=== PATIENT | male | born 1935 | race Caucasian/White ===

== ENCOUNTER → 2018-01-13 14:00 | Outpatient (CLI) | payer MEDICARE, BC | END | disposition home or self-care (01) | LOC: D.US 14:00 | DX: M79.604 Pain in right leg (principal) ==

== ENCOUNTER → 2019-10-23 15:59 | Outpatient (CLI) | payer MEDICARE, BC ==
[2019-10-23 16:10] LABS: BASOPHILS 0.6 % (0-2); EOSINOPHILS 2.7 % (0-7); HEMATOCRIT 44.1 % (42.0-54.0); HEMOGLOBIN 14.5 g/dL (13.5-17.5); IMMATURE GRANULOCYTES 0.2 % (0-5); LYMPHOCYTES 21.4 % (15-50); MCHC 32.9 g/dL (31.0-37.0); MCV 100.2 fL (80.0-100.0); MEAN PLATELET VOLUME 11.3 fL (7.4-10.4); MONOCYTES 7.4 % (2-11); NEUTROPHILS 67.7 % (40-80); PLATELET COUNT 198 10x3/uL (130-400); RDW 12.9 % (11.5-14.5); WBC 5.1 10x3/uL (4.8-10.8)
[2019-10-23 16:57] LABS: ALBUMIN 3.6 g/dL (3.4-5.0); ANION GAP 12.4 mmol/L (8-16); BILIRUBIN - TOTAL 0.63 mg/dL (0.2-1.3); CALCIUM 9.2 mg/dL (8.5-10.1); CARBON DIOXIDE 29.5 mmol/L (21.0-32.0); CHOL - HDL RATIO 3.7 ratio (2.3-4.9); CREATININE - SERUM 1.1 mg/dL (0.6-1.3); LDL-HDL RATIO 2.3 ratio (1.5-3.5); POTASSIUM - SERUM 3.9 mmol/L (3.5-5.1); PROTEIN - SERUM 7.1 g/dL (6.4-8.2); THYROID STIMULATING HORMONE 0.93 uIU/mL (0.36-3.74)
== END | disposition home or self-care (01) ==
LOC: D.LABREF 15:59
PROVIDERS: ATTEND Family Medicine
DX: C61 Malignant neoplasm of prostate (principal)

== ENCOUNTER 2020-01-13 13:27 | Inpatient (IN) | payer MEDICARE, BC ==
[2020-01-13 14:02] LABS: BASOPHILS 0.2 % (0-2); EOSINOPHILS 1.8 % (0-7); HEMATOCRIT 41.6 % (42.0-54.0); HEMOGLOBIN 13.5 g/dL (13.5-17.5); LYMPHOCYTES 16.8 % (15-50); MCH 33.1 pg (26.0-34.0); MCHC 32.5 g/dL (31.0-37.0); MEAN PLATELET VOLUME 10.5 fL (7.4-10.4); MONOCYTES 5.9 % (2-11); NEUTROPHILS 75.3 % (40-80); PLATELET COUNT 163 10x3/uL (130-400); RBC 4.08 10x6/uL (4.20-6.10); RDW 13.2 % (11.5-14.5); WBC 4.6 10x3/uL (4.8-10.8)
[2020-01-13 14:10] LABS: CALC OSMOLALITY 286 mosm/kg (275-300); CALCIUM 9.1 mg/dL (8.5-10.1); CARBON DIOXIDE 31.4 mmol/L (21.0-32.0); CHLORIDE - SERUM 106 mmol/L (98-107); CREATININE - SERUM 1.1 mg/dL (0.6-1.3); GLUCOSE 102 mg/dL (74-106); POTASSIUM - SERUM 3.8 mmol/L (3.5-5.1); SODIUM 143 mmol/L (136-145); UREA NITROGEN 17 mg/dL (7-18); eGFR NON AFRICAN AMERICAN 67 mL/min (90-120)
[2020-01-13 14:24] LABS: ALBUMIN 3.6 g/dL (3.4-5.0); ALKALINE PHOSPHATASE 67 U/L (30-120); ALT (SGPT) 16 U/L (10-68); BILIRUBIN - TOTAL 0.88 mg/dL (0.2-1.3); PROTEIN - SERUM 6.5 g/dL (6.4-8.2); THYROID STIMULATING HORMONE 0.76 uIU/mL (0.36-3.74); TROPONIN-I < 0.017 ng/mL (0.000-0.060)
[2020-01-13 14:52] LABS: UDS - AMPHET NEGATIVE QUAL (NEGATIVE); UDS - BARB NEGATIVE QUAL (NEGATIVE); UDS - BENZO NEGATIVE QUAL (NEGATIVE); UDS - COCAINE NEGATIVE QUAL (NEGATIVE); UDS - OPIATE NEGATIVE QUAL (NEGATIVE); UDS - PCP NEGATIVE QUAL (NEGATIVE); UDS - THC NEGATIVE QUAL (NEGATIVE)
[2020-01-13 15:11] LABS: BILIRUBIN NEGATIVE (NEGATIVE); GLUCOSE NEGATIVE (NEGATIVE); KETONE NEGATIVE (NEGATIVE); NITRITE NEGATIVE (NEGATIVE); SPECIFIC GRAVITY 1.015 (1.005-1.020); UROBILINOGEN NORMAL (NORMAL)
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
--- NOTE | 2020-01-13 15:31 | NUR ---
PT SPOUSE PHONE NUMBER [phone]
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
[2020-01-13] MEDS ORDERED: VITAMIN D1000 UNI1 (17:07)
[2020-01-13] MEDS ORDERED: LISINOPRIL-HCT1 EAC8 (17:08)
[2020-01-13 17:55] VITALS: BP 158/85; BMI 31.0
--- NOTE | 2020-01-13 18:20 | NUR ---
The patient is admitted to pen[facility]iary from the emergency dept. He is accompanied by this nurse in a w/c. He is pleasnt, but very confused. He knows his name, but not the place or time. He is able to ambulate. He is here in penitentiary with increased confusion, he is having some psychotic features and he is aggressive at times per his spouse. Recieved verbal consent from his spouse Hellen Terrell and she also stated that the patient has a living will that says he doesn't want any heroic measures, but the spouse said "Well, if you can save him and he niurka be ok then he should be a full code." At this time Marcelo Osborne RN made him a full code until she receives the POA papers with medical consents.
--- NOTE | 2020-01-13 18:26 | NUR ---
The patient is very confused as he is asking about his Mother. The patient said "Well, I just saw her, she's down in all that mess." The patient needs much direction as he gets lost easily with going to the bathroom.
[2020-01-13 18:42] LABS: CHOL - HDL RATIO 2.9 ratio (2.3-4.9); LDL-HDL RATIO 1.7 ratio (1.5-3.5)
[2020-01-13 20:00] VITALS: BP 112/54
--- NOTE | 2020-01-13 20:25 | NUR ---
PATIENT IS VERY CONFUSED, HYPERVERBAL, ONLY ORIENTED TO SELF, CAN BE A LITTLE DISRUPTIVE TO THE MILEU. WILL FOLLOW POC AND MONITOR, (NEW PATIENT)
--- NOTE | 2020-01-13 20:28 | NUR ---
PATIENT IS NEW, VERY CONFUSED, ORIENTED TO SELF ONLY, HARD TO REDIRECT, HYPERVERBAL, DISRUPTS THE MILEU. WILL FOLLOW POC
--- NOTE | 2020-01-14 07:57 | NUR ---
The patient is awake and alert, he is confused, he knows his name. He has poor insight into his situation. He ambulates independently. Provide prescribed meds. He needs much redirection. The patient is pleasant and he is hyperverbal. He has not shown any aggression. Provide prescribed meds. Continue POC.
[2020-01-14 09:03] VITALS: BP 125/77
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
--- NOTE | 2020-01-14 11:24 | NUR ---
The patient is hyperverbal and he is getting a little anxious d/t other patients getting loud and he is conversing with that patient and the other patient is discussing leaving. So this patient started getting upset and asked to leave and he became more and more verbal about it. Provided ativan 0.5 mg po, will monitor.
--- NOTE | 2020-01-14 17:51 | NUR ---
SPOKE WITH PT THIS SHIFT ABOUT POA PAPERWORK AND GETTING PT CODEWORD. NURSE REQUESTED A COPY WELL. SHE COULD NOT FIGURE OUT HOW SHE WAS GOING TO GET A COPY HERE. NURSE EXPLAINED THAT ON THURSDAY WE COULD FIGURE SOMETHING OUT THEN. SHE WANTED TO KNOW WHY SHE NEEDED A PASSCODE IF SHE HAD POA. NURSE EXPLAINED THAT SHE STILL HAS TO HAVE A CODE TO GET INFORMATION CAUSE OF HIPPA LAW. SHE DID NOT UNDERSTAND WHY SHE NEEDED THE CODE IF SHE HAD POA. NURSE EXPLAINED THAT WAS THE LAW. SHE UNDERSTOOD.
--- NOTE | 2020-01-14 18:18 | NUR ---
LUIS EDUARDO PAPERWORK FAXED THIS SHIFT.
[2020-01-14 20:00] VITALS: BP 111/72
--- NOTE | 2020-01-14 23:38 | NUR ---
B)RECEIVED PATIENT WANDERING AROUND IN THE DAYROOM. INTRUSSIVE AND WILL WALK UP AND START TALKING WHEN SOMEONE IS ALREADY INTERACTING WITH ANOTHER INDIVIDUAL. LAUGHS INAPPROPRIATELY. DELUSIONAL AND BELIEVED A STAFF MEMBER WAS HIS REALTING "I REALLY BELIEVED THAT WAS MY . SHE IS A RINGER FOR MY ." CONFUSED AND DISORIENTED. I)ADMINISTER MEDS AND MONITOR COMPLIANCE. REORIENT NEEDED. R)MED COMPLIANT. POOR REORIENTATION DUE TO IMPAIRED ABILITY TO COMPREHEND, PROCESS AND RETAIN INFORMATION. P)CONTINUE POC AND PROVIDE SAFE ENVIRONMENT.
[2020-01-15 09:33] VITALS: BP 141/72
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
--- NOTE | 2020-01-15 12:00 | NUR ---
RECEIVED IN HALLWAY OUTSIDE OF NURSES STATION. CALM AND COOPERATIVE WITH CARE AND ASSESSMENT. NO HALLUCINATIONS NOTED. NO AGGRESSION. REDIRECT AND REORIENT NEEDED. EATING LUNCH AT THIS TIME. CONTINUE PLAN OF CARE.
[2020-01-15 20:00] VITALS: BP 148/79
--- NOTE | 2020-01-15 20:04 | NUR ---
RECEIVED IN DAYROOM. SITTING CALMLY DURING GROUP. CALM AND COOPERATIVE WITH CARE AND ASSESSMENT. NO SIGNS SEXUALLY INAPPROPRIATE BEHAVIOR. REDIRECT AND REORIENT NEEDED. CONTINUE TO SIT CALMLY IN DAYROOM. CONTINUE PLAN OF CARE.
--- NOTE | 2020-01-15 20:07 | NUR ---
RECEIVED IN DAYROOM. SITTING CALMLY DURING EVENING GROUP. CALM AND COOPERATIVE WITH CARE AND ASSESSMENT. CONFUSED. NO SIGNS OF HALLUCINATIONS. REDIRECT AND REORIENT NEEDED. CONTINUES TO SIT CALMLY IN DAYROOM. CONTINUE PLAN OF CARE.
--- NOTE | 2020-01-15 23:10 | NUR ---
VERY CONFUSED. INCREASING ANXIETY. AGITATION YAHAIRA REDIRECTION. PRN ATIVAN 0.5 MG IM GIVEN FOR ANXIETY AND PRN HALDOL 2 MG IM GIVEN FOR PSYCHOTIC BEHAVIOR.
--- NOTE | 2020-01-16 00:30 | NUR ---
RESTING IN BED WITH EYES CLOSED.
[2020-01-16 09:39] VITALS: BP 85/48
--- NOTE | 2020-01-16 12:00 | NUR ---
RECEIVED IN HALLWAY OUTSIDE OF NURSES STAION. CALM AND COOPERATIVE WITH CARE AND ASSESSMENT. NO AGITATION OR AGGRESSION. MORE DROWSY TODAY FROM PRN LAST NIGHT. REDIRECT AND REORIENT NEEDED. EATING LUNCH AT THIS TIME. CONTINUE PLAN OF CARE.
--- NOTE | 2020-01-16 13:21 | PN ---
PATIENT:BRAYAN REYNOLDS MEDICAL RECORD: [id number] LOCATION:[facility]ET[facility] Cho ADMISSION DATE: 01/13/20 PROGRESS NOTE DATE OF SERVICE: 01/15/2020 SUBJECTIVE: The patient's case was discussed with staff. He has no new complaint. OBJECTIVE: The patient is very impaired cognitively and only partially oriented. He has almost no insight about his situation. He denies that he would seek to harm himself or others. ASSESSMENT: Dementia. PLAN: The patient's vital signs have been good, although he is not taking anything for blood pressure at this time. I am going to go ahead and start him on Namenda for its memory enhancing properties. He will be monitored for clinical changes associated with its use. In my opinion, it is clear that this patient has an advanced dementing illness. I am not able to explain the family's history that this all started in August after he hit his head. The patient appears to have a progressive dementia and there are no obvious toxic or metabolic issues going on and the CAT scan that he had in the Emergency Department showed no acute process, but did indeed show evidence of atrophy consistent with a long-term or longstanding dementing process. TRANSINT:[id number] Voice Confirmation ID: [id number] DOCUMENT ID: [id number] JOVANNA RIVAS MD at 1321 CC: [id number] DICTATION DATE: 01/15/20 1152 SINGER AND UNLOADER: 01/15/20 1646 ADM IN [facility] [address] [place] [address]
[2020-01-16 13:52] VITALS: Wt 102.4 kg
--- NOTE | 2020-01-16 19:32 | NUR ---
RECEIVED IN DAYROOM. COMBATIVE WITH CARE AND REDIRECTION. HIGH ANXIETY. PRN ATIVAN 0.5 MG IM GIVEN FOR ANXIETY AND PRN HALDOL 2 MG IM GIVEN FOR PSYCHOTIC BEHAVIOR. CONTINUE TO ATTEMPT REDIRECTION. SITTING IN RECLINER OUTSIDE OF NURSES STAION AT THIS TIME. CONTINUE PLAN OF CARE.
[2020-01-16 19:49] VITALS: BP 137/70
--- NOTE | 2020-01-17 01:08 | NUR ---
RESTLESS IN BED.
[2020-01-17 08:09] VITALS: BP 139/78
--- NOTE | 2020-01-17 12:35 | NUR ---
RECEIVED IN HALLWAY OUTSIDE OF NURSES STATION. RESTLESS. ANXIOUS. CONTINUOUSLY ATTEMPTING TO GET UP WITHOUT ASSISTANCE. BECOMES AGITATED AND AGGRESSIVE WITH REDIRECTION AND CARE. UNCOOPERATIVE. COMBATIVE WITH STAFF. PRN ATIVAN 0.5 MG IM GIVEN FOR INCREASING ANXIETY AND PRN HALDOL 2 MG FOR PSYCHOTIC UNSAFE BEHAVIOR.
--- NOTE | 2020-01-17 13:18 | PN ---
PATIENT:BRAYAN REYNOLDS MEDICAL RECORD: [id number] LOCATION:[facility]A Daniel113 ADMISSION DATE: 01/13/20 PROGRESS NOTE DATE OF SERVICE: 01/16/2020 SUBJECTIVE: The patient's case was discussed with staff. He has no new complaint. OBJECTIVE: The patient slept and ate well yesterday. He has been very confused. He did require some p.r.n. medication for agitation yesterday. ASSESSMENT: Dementia. PLAN: The patient will be given Klonopin to assist with the anxiety. The anxiety and being unable to understand and process information in his environment is resulting in some significant agitation. His long-term prognosis is guarded. TRANSINT:[id number] Voice Confirmation ID: [id number] DOCUMENT ID: [id number] JOVANNA RIVAS MD at 1318 CC: [id number] DICTATION DATE: 01/16/20 1530 CEPHALOMETRIC TRACER: 01/16/20 2252 ADM IN [facility] [address] [place] [address]
[2020-01-17 20:11] VITALS: BP 124/80
--- NOTE | 2020-01-17 20:23 | NUR ---
RECEIVED IN DAYROOM. SITTING IN A RECLINER WITH PEERS ATR HER SIDE. CALM AND COOPERATIVE WITH CARE AND ASSESSMENT. NO SIGNS OF AGGRESSION. REDIRECTY AND REORIENT NEEDED. CONTINUES TO SIT QUIETLY IN DAYROOM. CONTINUE PLAN OF CARE.
[2020-01-18 08:36] VITALS: BP 136/70
--- NOTE | 2020-01-18 09:53 | NUR ---
SW SPOKE TO [facility]SEA AT [facility]. PT HAS A CURRENT OPEN CASE. ANTIONE WILL SEND UPDATES TO HOSEA PER REQUEST.
[2020-01-18 12:33] LABS: ALBUMIN 3.5 g/dL (3.4-5.0); ALKALINE PHOSPHATASE 75 U/L (30-120); ALT (SGPT) 17 U/L (10-68); BILIRUBIN - TOTAL 1.57 mg/dL (0.2-1.3); CALC OSMOLALITY 287 mosm/kg (275-300); CALCIUM 8.9 mg/dL (8.5-10.1); CARBON DIOXIDE 26.4 mmol/L (21.0-32.0); CHLORIDE - SERUM 109 mmol/L (98-107); GLUCOSE 106 mg/dL (74-106); POTASSIUM - SERUM 3.7 mmol/L (3.5-5.1); PROTEIN - SERUM 6.1 g/dL (6.4-8.2); SODIUM 144 mmol/L (136-145); UREA NITROGEN 16 mg/dL (7-18); eGFR NON AFRICAN AMERICAN 75 mL/min (90-120)
[2020-01-18 13:01] LABS: BASOPHILS 0.3 % (0-2); EOSINOPHILS 2.8 % (0-7); HEMATOCRIT 43.5 % (42.0-54.0); HEMOGLOBIN 14.5 g/dL (13.5-17.5); IMMATURE GRANULOCYTES 0.2 % (0-5); MCH 33.5 pg (26.0-34.0); MCHC 33.3 g/dL (31.0-37.0); MCV 100.5 fL (80.0-100.0); MEAN PLATELET VOLUME 10.7 fL (7.4-10.4); MONOCYTES 7.2 % (2-11); NEUTROPHILS 77.5 % (40-80); PLATELET COUNT 184 10x3/uL (130-400); RBC 4.33 10x6/uL (4.20-6.10); RDW 13.1 % (11.5-14.5); WBC 6.4 10x3/uL (4.8-10.8)
--- NOTE | 2020-01-18 13:35 | PN ---
PATIENT:BRAYAN REYNOLDS MEDICAL RECORD: [id number] LOCATION:MaríaKHANHSharad Daniel113 ADMISSION DATE: 01/13/20 PROGRESS NOTE DATE OF SERVICE: 01/17/2020 SUBJECTIVE: The patient's case was discussed with staff. He has no new complaint. OBJECTIVE: The patient was quite agitated last night. He was disorganized with very poor insight. ASSESSMENT: Dementia. PLAN: Current medicines have been reviewed and will be maintained. Long-term prognosis is guarded. TRANSINT:[id number] Voice Confirmation ID: [id number] DOCUMENT ID: [id number] JOVANNA RIVAS MD at 1335 CC: [id number] DICTATION DATE: 01/17/20 1557 MANAGER CATEGORY: 01/18/20 0100 ADM IN [id number] [place] [address]
--- NOTE | 2020-01-18 15:13 | NUR ---
RECEIVED SITTING UP IN RECLINER AT NURSES STATION THIS AM.VERY CONFUSED.OBSERVED FREQUENTLY SPITTING UP THICK,DIRTY WHITE MUCOUS.MEDS WERE CRUSHED AND GIVEN IN APPLESAUCE.ATTEMPTED TO THROW WATER.XRAY OF CHEST WAS DONE TODAY.NO HALLUCINATIONS OBSERVED.
--- NOTE | 2020-01-18 19:21 | NUR ---
SPOKE WITH PT DAUGHTER THIS SHIFT. PASSCODE GIVEN. SHE WANTED TO KNOW HOW HIS BEHAVIORS WERE. NURSE EXPLAINED THAT HE WAS SLEEPY THIS SHIFT DUE TO MEDICATION PREVIOSLY GIVEN. SHE STATED YES HE GOT 2 YESTERDAY HE IS A BIG MAN. SHE ASKED IF I THOUGHT THE MEDS WERE STARTING TO WORK AND NURSE STATED NO CAUSE HE WAS SEDATED NOT ON CURRENT MEDICATIONS. SHE DID EXPRESS SOME UNDERSTANDING. PT WAS DROWSY DUE TO IM MEDICATIONS.
[2020-01-18 20:09] VITALS: BP 129/79
--- NOTE | 2020-01-18 21:37 | NUR ---
PATIENT IS VERY CONFUSED, ANSWERS TO NAME HOWEVER IM NOT SURE THAT HE ACTUALLY KNOWS HIS NAME, HE DOES NOT KNOW, WHERE HE IS, TIME OR SITUATION, COMPLIANT WITH MEDS. LABIILE, EASILY AGITATED. WILL FOLLOW POC
--- NOTE | 2020-01-19 14:01 | PN ---
PATIENT:BRAYAN REYNOLDS MEDICAL RECORD: [id number] LOCATION:SVET[facility] Daniel113 ADMISSION DATE: 01/13/20 PROGRESS NOTE DATE OF SERVICE: 01/18/2020 SUBJECTIVE: The patient's case was discussed with staff. He has no new complaint. OBJECTIVE: The patient is in good behavioral control, but easily arousable and becomes agitated easily. ASSESSMENT: Dementia. PLAN: The patient will be treated with a low dose of Geodon. His long-term prognosis is guarded. TRANSINT:[id number] Voice Confirmation ID: [id number] DOCUMENT ID: [id number] JOVANNA RIVAS MD at 1401 CC: [id number] DICTATION DATE: 01/18/20 1539 SECURITY INCIDENT RESPONSE SPECIALIST: 01/19/[address] [facility] [address] [place] [address]
--- NOTE | 2020-01-19 14:25 | NUR ---
Nutrition Follow-up: Poor PO intake. Noted Megace added. Diet: Regular PO intake: 0% breakfast this AM; only 50% snack yesterday; 0% x 3 on 01/16 Wt: 239.6# (01/15) Last BM: 01/17 Labs reviewed Meds noted: Megace -Encourage PO intake and honor food preferences. -+Ensure with meals. -Monitor wt. -RD following.
--- NOTE | 2020-01-19 15:20 | NUR ---
PT SITTING IN CHAIR AT THIS TIME. PT IS CONFUSED AND ORIENTED TO SELF ONLY. PT COMPLIANT WITH MEDS, VITALS AND ASSESSMENTS. CALLED AND COULD NOT UNDERSTAND WHY HE DID NOT UNDERSTAND HER OR ANSWER SIMPLE QUESTIONS. NURSE EXPLAINED HE HAD BEEN CONFUSED SINCE ADMISSION. PT HAS NOT BEEN COMBATIVE WITH CARE THIS SHIFT. CHAIR AND BED ALARM IN PLACE AND ACTIVE. WILL CONT PLAN OF CARE.
[2020-01-19 20:00] VITALS: BP 184/75
--- NOTE | 2020-01-20 00:12 | NUR ---
B)RECEIVED PATIENT LYING IN THE BED. CONFUSED AND DISORIENTED. NO INSIGHT INTO THE REASON FOR HOSPITALIZATION. PATIENT TRIES TO GET UP UNASSISTED WHEN NEEDING TO GO TO THE BATHROOM. I)ADMINISTER MEDS AND MONITOR COMPLIANCE. ENCOURAGE PATIENT TO ASK FOR HELP WHEN NEEDING TO GET UP. R)MED COMPLIANT. FORGETFUL AND STILL ATTEMPTS TO GET UP UNASSISTED. HAS GONE TO BATHROON X2 WITH ASSIST. P)CONTINUE POC AND PROVIDE SAFE ENVIRONMENT.
--- NOTE | 2020-01-20 04:22 | NUR ---
AT 04:13 GAVE ATIVAN 0.5 MG IM AND HALDOL 2 MG IM FOR ANXIETY AND AGGRESSION WITH STAFF.
--- NOTE | 2020-01-20 10:31 | NUR ---
The patient is sleeping at this time. He fought and acted out this am when staff tried to get him up out of the bed. The patient did not awaken for breakfast or medication this am. Provide prescribed meds. The patient is too sleepy at this time for meds. He has poor insight into his situation. Continue POC.
[2020-01-20 10:45] VITALS: BP 143/68
[2020-01-20 20:00] VITALS: BP 112/70
--- NOTE | 2020-01-20 23:39 | NUR ---
B.) PT IS VERY SLEEPY TONIGHT. HE IS RECEIVED IN HIS ROOM. HE IS COOPERATIVE WITH STAFF WHEN PROMPTED. HE IS RESTING CALMLY WITH EYES CLOSED. NO SIGNS OF DISTRESS NOTED. I.) PROVIDED PM MEDICATIONS PRESCRIBED. REDIRECT NEEDED. R.) COMPLIANT WITH ALL MEDICATIONS. P.) WILL CONTINUE TO MONITOR.
--- NOTE | 2020-01-21 10:37 | NUR ---
The patient is more awake this am, he is very confused, he tried to stand and walk on his own. He is unsteady. He did fight a little bit with staff, he is difficult to direct and he is not following simple commands. Assisted him to eat breakfast this am. He did need to be fed, but he is eating and drinking today and not sleepy. He tried to talk a little bit and most questions he answers appropriately. Provide prescribed meds. Monitor mood and behavior. Continue POC.
--- NOTE | 2020-01-21 23:09 | NUR ---
B.) PT IS ALERT AND ORIENTED TO SELF ONLY. HE HAS POOR INSIGHT INTO HIS SITUATION. HIS SPEECH IS GARBLED AND LOW. HE IS SPITTING AT STAFF. HE IS RECEIVED IN THE DAYROOM IN A GERICHAIR. HE IS WITHDRAWN WITH A FLAT AFFECT. I.) PROVIDED PM MEDICATIONS. REDIRECT OFTEN. R.) COMPLIANT WITH ALL MEDICATIONS. DIFFICULT TO REDIRECT. P.) WILL CONTINUE TO MONITOR.
[2020-01-22 08:34] VITALS: BP 131/68
--- NOTE | 2020-01-22 12:37 | NUR ---
The patient is awake, but he is confused. He is not as talkative today as he was yesterday. He did not want to eat much for lunch, he drank his ensure. He did not become aggressive with staff this am when they got him up. He has no insight into his situation. Provide prescribed meds. The patient is compliant with meds. Continue POC.
--- NOTE | 2020-01-22 19:59 | NUR ---
RECEIVED IN DAYROOM. SITTING IN A CHAIR WITH PEERS AT HIS SIDE. CALM AND COOPERATIVE WITH CARE AND ASSESSMENT. VERY CONFUSED. NO SIGNS OF AGGRESSION OR HALLUCIANTIONS. REDIRECT AND REORIENT NEEDED. CONTINUES TO SIT CALMLY IN DAYROOM. CONTINUE PLAN OF CARE.
[2020-01-22 20:04] VITALS: BP 140/78
[2020-01-23 07:40] VITALS: BP 130/67
--- NOTE | 2020-01-23 12:04 | PN ---
PATIENT:BRAYAN REYNOLDS MEDICAL RECORD: [id number] LOCATION:SVET[facility] Daniel113 ADMISSION DATE: 01/13/20 PROGRESS NOTE DATE OF SERVICE: 01/19/2020 SUBJECTIVE: The patient's case was discussed with staff. He has no new complaint. OBJECTIVE: The patient has been somewhat combative with care. He is very poorly organized. He has just been started on the Geodon and I think I would like to give that another day or two of trial before additional adjustments. ASSESSMENT: Dementia. PLAN: Current medicines have been reviewed and will be maintained. TRANSINT:[id number] Voice Confirmation ID: [id number] DOCUMENT ID: [id number] JOVANNA RIVAS MD at 1204 CC: [id number] DICTATION DATE: 01/19/20 1620 SENIOR MECHANICAL ESTIMATOR: 01/19/20 1806 ADM IN [address] [place] [address]
--- NOTE | 2020-01-23 14:22 | NUR ---
RECEIVED IN HALLWAY OUTSIDE OF NURSES STATION. CALM AND COOPERATIVE WITH CARE AND ASSESSMENT. NO AGGRESSION. REDIRECT AND REORIENT NEEDED. RESTING IN RECLINER WITH EYES CLOSED AT THIS TIME. CONTINUE PLAN OF CARE.
[2020-01-23 21:17] VITALS: BP 149/71
--- NOTE | 2020-01-23 21:48 | NUR ---
RECEIVED IN HALLWAY SITTING IN A CHAIR WITH PEERS AT HIS SIDE. VERY CONFUSED. CALM AND COOPERATIVE WITH CARE AND ASSESSMENT. NO SIGNS OF AGGRESSION. REDIRECT AND REORIENT NEEDED, RESTING IN BED WITH EYES CLOSED AT THIS TIME. CONTINUE PLAN OF CARE.
[2020-01-24 08:04] VITALS: BP 120/57
[2020-01-24 13:08] LABS: BASOPHILS 0.1 % (0-2); EOSINOPHILS 0.5 % (0-7); HEMATOCRIT 44.3 % (42.0-54.0); HEMOGLOBIN 14.6 g/dL (13.5-17.5); IMMATURE GRANULOCYTES 0.2 % (0-5); LYMPHOCYTES 5.7 % (15-50); MCH 33.3 pg (26.0-34.0); MCV 100.9 fL (80.0-100.0); MEAN PLATELET VOLUME 10.6 fL (7.4-10.4); MONOCYTES 7.2 % (2-11); NEUTROPHILS 86.3 % (40-80); PLATELET COUNT 149 10x3/uL (130-400); RBC 4.39 10x6/uL (4.20-6.10); RDW 13.2 % (11.5-14.5); WBC 9.1 10x3/uL (4.8-10.8)
[2020-01-24 13:24] LABS: ALBUMIN 3.3 g/dL (3.4-5.0); ANION GAP 9.7 mmol/L (8-16); BILIRUBIN - TOTAL 1.42 mg/dL (0.2-1.3); CALCIUM 9.1 mg/dL (8.5-10.1); CARBON DIOXIDE 29.9 mmol/L (21.0-32.0); CREATININE - SERUM 1.1 mg/dL (0.6-1.3); POTASSIUM - SERUM 3.6 mmol/L (3.5-5.1); PROTEIN - SERUM 6.7 g/dL (6.4-8.2)
--- NOTE | 2020-01-24 15:00 | PN ---
PATIENT:BRAYAN REYNOLDS MEDICAL RECORD: [id number] LOCATION:[facility]arad [facility]ela[facility]ishore113 ADMISSION DATE: 01/13/20 PROGRESS NOTE DATE OF SERVICE: 01/23/2020 SUBJECTIVE: The patient's case was discussed with staff. He has no new complaint. OBJECTIVE: The patient is not eating well. He ate almost nothing yesterday. He has poor insight about his situation. He has not been excessively agitated or disruptive. He does require a lot of redirection. ASSESSMENT: Dementia. PLAN: Current medicines have been reviewed and will be maintained. Long-term prognosis is guarded. TRANSINT:[id number] Voice Confirmation ID: [id number] DOCUMENT ID: [id number] JOVANNA RIVAS MD at 1500 CC: [id number] DICTATION DATE: 01/23/20 1332 SLAB WORKER: 01/23/20 1355 ADM IN [id number] [place] [address]
--- NOTE | 2020-01-24 17:00 | NUR ---
RECEIVED IN HALLWAY OUTSIDE OF NURSES STATION. CALM AND COOPERATIVE WITH CARE AND ASSESSMENT. NO AGGRESSION TODAY. AM MEDS HELD DUE TO PATIENT BEING LETHARGIC THIS MORNING. REDIRECT AND REORIENT NEEDED. EATING AT THIS TIME. CONTINUE PLAN OF CARE.
[2020-01-24 20:09] VITALS: BP 137/72
--- NOTE | 2020-01-24 21:11 | NUR ---
RECEIVED IN DAYROOM. SITTING IN A CHAIR WITH PEERS AT HIS SIDE. CALM AND CCOPERATIVE WITH CARE AND ASSESSMENT. NO SIGNS OF AGGRESSION. REDIRECT AND REORIENT NEEDED. IN BEDROOM EYES CLOSED AT THIS TIME. CONTINUE PLAN OF CARE.
--- NOTE | 2020-01-25 09:57 | NUR ---
SW SPOKE TO . SW DID A REFERRAL TO [facility] WITH 'S PERMISSION. PT WAS ALSO REFERRED TO [facility]. [facility] IS BACK. SW IS WAITING ON HOSPICE EVALUATION TO DETERMINE IF PT WILL MEET INPATIENT CRITERIA. SW REPORTED ALL OF THESE THINGS TO . SHE VERBALIZED UNDERSTANDING OF DISCUSSION.
[2020-01-25 10:28] VITALS: BP 146/76
--- NOTE | 2020-01-25 11:09 | NUR ---
The patient is awake to eat breakfast and take medication, but he is sleepy currently. Izzy Davies RN did a COVID-19 test on him and sent the results to the lab. He needs assist to eat and drink. He has not mentioned seeing little people. He has not been aggressive this am. He is currently NPO, meds held this am. George [facility] is assisting to get the patient placement and Hospice. Continue POC.
--- NOTE | 2020-01-25 13:26 | NUR ---
Nutrition Consult/Follow-up: NPO per CHAIN PEGGER recs. Poor PO intake prior to NPO status. Wt loss noted. Noted plans to d/c on hospice. Diet: NPO PO intake: 0% x 9 meals (01/21-01/23) Wt: 225# (01/21); 239.6# (01/15); 241# (01/12) Labs noted (01/23): Na 149, Alb 3.3 -RD following and available to assist as needed.
--- NOTE | 2020-01-25 14:51 | PN ---
PATIENT:BRAYAN REYNOLDS MEDICAL RECORD: [id number] LOCATION:[facility]A [facility] ADMISSION DATE: 01/13/20 PROGRESS NOTE DATE OF SERVICE: 01/24/2020 SUBJECTIVE: The patient's case was discussed with staff. He has no new complaint. OBJECTIVE: The patient is disorganized and difficult to redirect. He continues to have episodic agitation. He is showing evidence of dehydration secondary to his poor oral intake. ASSESSMENT: Dementia. PLAN: Current medicines have been reviewed. He will be monitored for clinical changes. His long-term prognosis is guarded. TRANSINT:[id number] Voice Confirmation ID: [id number] DOCUMENT ID: [id number] JOVANNA RIVAS MD at 1451 CC: [id number] DICTATION DATE: 01/24/20 1532 DIVIDEND CLERK: 01/24/20 2253 ADM IN [id number] [place] [address]
--- NOTE | 2020-01-25 16:15 | NUR ---
PATIENT DISCHARGED TO INPATIENT [facility]. PATIENT TRANSPORTED TO [facility] INPATIENT VIA EMS. REPORT CALLED TO GERALDINE FORTUNE. PAPERWORK FAXED TO INPATIENT [facility] AND HARD COPY SENT WITH EMS. PERSONAL BELONGINGS SENT WITH PATIENT.
--- NOTE | 2020-01-26 14:39 | PN ---
PATIENT:BRAYAN ERYNOLDS MEDICAL RECORD: [id number] [facility] ADMISSION DATE: 01/13/20 PROGRESS NOTE DATE OF SERVICE: 01/25/2020 SUBJECTIVE: The patient's case was discussed with staff. He has no new complaint. OBJECTIVE: The patient is calm and cooperative, but only oriented to person. He is not eating, has lost a great deal of weight and now is p.o. because of swallowing difficulties. From a behavioral standpoint, which is my concern, he is not a danger to others. With regard to his underlying medical condition, there are others looking into that and caring for him and it appears that his prognosis is poor and he has been referred to inpatient hospice. There are no behavioral reasons why he could not be safely managed on a hospice unit. I have been asked to discharge him to a facility today. TRANSINT:[id number] Voice Confirmation ID: [id number] DOCUMENT ID: [id number] JOVANNA RIVAS MD at 1439 CC: [id number] DICTATION DATE: 01/25/201657 VICE PRESIDENT PHARMACY: 01/26/20 0217 DIS IN 01/25/20 [facility] [address] [id number]
== END 2020-01-25 16:15 | disposition home health service (06) | DRG 57 ==
LOC: D.ER 13:27 → D.PSYCH 16:32 → D.ER 16:54 → D.PSYCH 01-25 16:15
PROVIDERS: Family Medicine; ADMIT Psychiatry & Neurology Psychiatry; ATTEND Psychiatry & Neurology Psychiatry
DX: G30.1 Alzheimer's disease with late onset (principal); F02.81 Dementia in other diseases classified elsewhere, unspecified severity, with behavioral disturbance; I10 Essential (primary) hypertension; R05 Cough; K11.20 Sialoadenitis, unspecified; R63.0 Anorexia; K59.00 Constipation, unspecified